=== PATIENT | male | born 1985 | race Caucasian/White ===

== ENCOUNTER 2017-03-15 02:59 | Emergency (ER) | payer OTHER ==
[2017-03-15 03:04] VITALS: BMI 32.6
[2017-03-15 03:06] VITALS: RESP 18; TEMP 98.9
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
[2017-03-15 05:18] VITALS: BP 147/72; PULSE 89; O2SAT 99
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
== END 2017-03-15 05:16 | disposition home or self-care (01) ==
LOC: ED 02:59
DX: Z04.3 Encounter for examination and observation following other accident (principal); Y04.2XXA Assault by strike against or bumped into by another person, initial encounter; Y93.89 Activity, other specified; Y92.524 Gas station as the place of occurrence of the external cause